=== PATIENT | male | born 1965 | race Caucasian/White ===

== ENCOUNTER 2025-03-23 08:04 | Outpatient (AMB) | payer OTHER, SELFPAY ==
--- NOTE | 2025-03-23 08:10 | A.OFFPC_ITS ---
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 Intake Note: patient here for new patient visit Online Activist Required: No Allergies No Known Allergies Allergy (Verified 03/23/25 08:22) Medication List - Last Reconciled 03/23/25 by Marquita Vargas CNP No Known Home Meds Tobacco use date assessed: 03/23/25 Dental Screening Dental Screen Date: 03/23/25 Did you have a dental visit in the last 12 months?: Yes Did you have a dental problem in the last 6 months where you did not have access to dental care?: No Was dental information given to patient?: Patient has dentist HPI HPI Comments History of Present Illness Details 59-year-old male presents to establish c are. Prior PCP? - Dr. Dixon, [facility] Last office visit/CPE/labs - About 1.5 year Acute issue(s) - Reports tenderness above his left knee . He describes the pain as constant, dull ache, intensifies with walking and going down stairs. His symptoms started in 12/2024 after he knelt on this knee while working on a tile floor. Since the injury, he has been avoiding kneeling and uses knee pads as needed. He denies fall, injury, or trauma. He took some alieve with some relief but stop taking it in a while. Past Medical History - Peptic ulcer, frequent headaches, ecze ma Surgical History - None Family History - Dad: Dementia - MGM: Alcohol abuse Social History - Nonsmoker. Does not vape. Drinks 4-5 beers monthly. Denies recreational drug use - Has been making healthy dietary choice s. Walks regularly. Generally sleep well Health maintenance - Last eye exam was several years ago. - Last dental visit was 5 months ago. He visits his dentist twice yearly - Last tetanus vaccine was more than 10 years ago; received Tdap vaccine today - He notes that he is up-to-date on the flu vaccine - He has never been vaccinated for shing les. - Last colonoscopy was 8-10 years ago at [facility], [place]: Normal w/o polyps. Record not available. 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 1. Little interest or pleasure in doing things: not at all 2. Feeling down, depressed, or hopeless: not at all 3. Trouble falling or staying asleep, or sleeping too much: not at all 4. Feeling tired or having little energy: not at all 5. Poor appetite or overeating: not at all 6. Feeling bad about yourself - or that you are a failure or have let yourself or your family down: not at all 7. Trouble concentrating on things, such as reading the newspaper or watching television: not at all 8. Moving or speaking so slowly that other people could have noticed. Or the opposite - being so fidgety or restless that you have been moving around a lot more than usual: not at all 9. Thoughts that you would be better off or of hurting yourself in some way: not at all Total score: 0 Depression Screening Interpretation: Negative Depression Screening Done: Yes 52118 - PHQ-9 Billing: Yes Source: Developed by Drs. Timmy Wayne, Cindy Travis, Josue Russ and colleagues, with an educational marjorie from [employer]. Thrive Questionnaire Date Thrive assessed: 03/23/25 I am a: Patient What is your living situation today?: I have a steady place to live Within the past 12 months, did the food you bought not last and you didn't have the money to get more?: Never true Within the past 12 months, did you worry whether your food would run out before you got money to buy more?: Never true Do you have trouble paying for medicines?: No Do you have trouble getting transportation to medical appointments?: No Do you have trouble paying your heating and electricity bill?: No Do you have trouble taking care of your child, family member or friend?: No Do you have trouble with day-to-day activities such as bathing, preparing meals, shopping, managing finances, etc.?: No Are you currently unemployed and looking for a job?: No Are you interested in more education?: No Please select the resources that you would like help with: None Currently or been in a relationship where the following occur: No concerns reported THRIVE Score: 0 AUDIT C Alcohol Use Questionnaire (AUDIT-C) 1. How often do you have a drink containing alcohol?: Monthly or less 2. How many drinks containing alcohol do you have on a typical day when you are drinking?: 1 or 2 3. How often do you have six or more drinks on one occasion?: Never Total Score: 1 Score Reviewed/Action Taken: Yes CARLO-7 AMB Questionnaire CARLO-7 Date CARLO - 7 assessed: 03/23/25 Feeling nervous, anxious, or on edge: 0 = Not at all Not being able to stop or control worryin = Not at all Worrying too much about different things: 0 = Not at all Trouble relaxin = Not at all Being so restless that it is hard to sit still: 0 = Not at all Becoming easily annoyed or irritable: 0 = Not at all Feeling afraid as if something awful might happen: 0 = Not at all Total CARLO-7 score (0-4 normal; 5-9 mild; 10-14 moderate; 15-21 severe): 0 Source: Developed by Drs. Timmy Wayne, Cindy Travis, Josue Russ and colleagues, with an educational marjorie from [employer]. CARLO-7 Assessment Billing CARLO-7 Assessment Tool: CARLO-7 Assessment 93007 Review of Systems Const Details: Denies chills, Denies fatigue, Denies fever(s), Denies headache(s) and Denies weakness HEENT Denies change in vision, Denies dizziness, Denies headache(s), Denies hearing loss, Denies nasal congestion, Denies sinus pain, Denies sinus pressure and Denies sore throat Card Denies chest pain, Denies lightheadedness, Denies dyspnea and Denies other (palpitations) Resp Denies cough, Denies dyspnea and Denies wheezing GI Denies abdominal pain, Denies melena, Denies hematochezia, Denies change in bowel habits, Denies dyspepsia and Denies nausea Denies hematuria and Denies dysuria Musc Reports pain above the left knee, Denies abnormal gait, Denies numbness and Denies tingling Skin/Breast Denies rash, Denies unusual bruising and Denies wounds Neuro Denies abnormal gait, Denies dizziness, Denies headache(s), Denies memory loss, Denies numbness, Denies Sensory deficit (Neuro), Denies tingling and Denies weakness Psych Denies anxiety, Denies depression and Denies memory loss Endo Denies cold intolerance, Denies fatigue, Denies heat intolerance, Denies polydipsia and Denies polyuria Familia/Lymph Denies easy bleeding and Denies easy bruising Aller/Immun Denies wheezing Physical exam (Primary Care) Vital Signs: Last Vital Signs Temp 97.6 F 03/23/25 08:17 Pulse 76 03/23/25 08:17 Resp 16 03/23/25 08:17 BP 135/70 03/23/25 08:17 Pulse Ox 97 03/23/25 08:17 Oxygen Delivery Method Room Air 03/23/25 08:17 BMI result Body Mass Index 27.3 Tobacco/Smoking Status: Tobacco use Status Tobacco use date assessed 03/23/25 03/23/25 08:16 Patient Tobacco Use Status Never used Tobacco 03/23/25 08:16 e-Cigarette/Vaping Use Never Used 03/23/25 08:16 PHQ-9: PHQ-9 Score PHQ-9: Total score 0 03/23/25 08:56 Depression Screening Interpretation: Negative Thrive Assessment: Date of Thrive Assessment Date Thrive assessed 03/23/25 03/23/25 08:16 Currently or been in a relationship where the following occur: No concerns reported Const Other: General: no acute distress, well developed, alert and awake Nutritional Appearance: well nourished Orientation/consciousness: patient oriented x3 HENMT Head: Yes normocephalic and Yes atraumatic Ears: hearing grossly normal bilaterally and TM's normal bilaterally General nose exam: Normal external nose present and Normal nares present Mouth: Normal oral and palatal mucosa present and moist mucous membranes Teeth and gingiva: dentition normal Throat: Yes oropharynx normal Eyes Pupils: Equal, round and reactive pupils present and Pupil accommodation reflex normal EOM: EOMs intact bilaterally Neck Neck: Yes normal visual inspection, Yes no lymphadenopathy and Yes trachea mid line Thyroid: Thyroid normal Carotids: no bruits Lymphatic: no lymphadenopathy noted Chest Chest palpation & inspection: normal inspection of the chest Resp Effort & Inspection: normal respiratory effort Auscultation: clear to auscultation bilaterally Cardio Rate: regular rate Rhythm: regular rhythm Heart sounds: S1 normal heart sound present, S2 normal heart sound present, no gallops, no murmurs and no rubs Bruits: no abdominal aortic bruits and no carotid bruits GI Palpation (GI): No Abdominal aortic bruit present, Soft to palpation, nontender, No hepatosplenomegaly present and No Rebound tenderness present Auscultation: normal bowel sounds General: Yes no CVA tenderness Back/Spine/Pelvis Back: no CVA tenderness Cervical Spine: cervical ROM normal and No Cervical spine tenderness Thoracic/Lumbar Spine: thoraco-lumbar ROM normal, No pain with thoraco-lumbar ROM, No thoracic spinal tenderness and No lumbar spinal tenderness Skin General: warm and dry. Normal skin color. Normal skin turgor Lesions: no lesions Rashes: no rashes Trauma: no lacerations or abrasions Wounds: no wounds Nails: normal Neuro General: patient oriented x3, gait normal and CN's II-XI intact bilaterally Cranial nerves: Yes Equal, round and reactive pupils present Cognition (Neuro): normal cognition Gait exam (Neuro): Normal gait present Motor exam (neuro): 5/5 motor strength present throughout Sensory Exam: No Sensory deficit (Neuro) Deep tendon reflexes (DTR's): Right patellar reflex intensity grade: 2+ and Left patellar reflex intensity grade: 2+ Extrem General: Yes normal to inspection, No edema and No calf tenderness. Point te nderness to palpation above the left knee, no erythema, edema, or overt injury or trauma Psych Appearance: grossly normal Affect: normal affect Attitude: cooperative Thought process: Normal thought process present Immunizations Boostrix Tdap 2.5 Lf unit-8 mcg-5 Lf/0.5 mL intramuscular syringe Performing Provider: Marquita Vargas CNP Performing Location: [facility] Administered by: Maycol Katz RN on 03/23/25 08:56 Dose Route Admin Location Dispensed Lot Number Expiration Date [facility] Retail Supervisor 0.5 mL IM Left Deltoid 0.5 mL [id number] 04/24/27 [id number] [employer] VIS Given Date VIS Provided VIS Publication Date 03/23/25 Single Vaccine 21 Eligibility Eligibility Date Funding Source Not [facility] Eligible 03/23/25 Private Coding Level of Care Code New Pt Level 3 (74472) New Pt Prev Care 40-64y(78375) Diagnoses Normal physical examination, routine Z00.00 Pain of left lower extremity M79.605 Eye exam, routine Z01.00 Vaccine counseling Z71.85 Colon cancer screening Z12.11 Laboratory tests ordered as part of a complete physical exam (CPE) Z00.00 Additional Codes CARLO-7 Assessment Billing - CARLO-7 Assessment Tool: CARLO-7 Assessment 59885 ([id number]) PHQ-9 - 27315 - PHQ-9 Billing: Yes ([id number]) Assessment & Plan Assessment & Plan (1) Normal physical examination, routine: Code(s): Z00.00 - Encounter for general adult medical examination without abnormal findings Category: Medical Plan: No significant functional limitations noted. Healthy diet and routine exercise encouraged. Perform level can follow-up for telehealth visit in 2-3 weeks. Return sooner with symptoms or concerns. Verbalized understanding and agreed with treatment plan. (2) Pain of left lower extremity: Code(s): M79.605 - Pain in left leg Category: Medical Plan: Point tenderness to palpation above the left knee, no erythema, edema, or overt injury or trauma. Quadricep tendinitis is likely. Advised to avoid kneeling down until healed. Naproxen 500 mg twice daily as needed ordered; advised to take as prescribed and with food. Instructed on the risks, benefits, potential adverse reactions of the medication. Warm/cool compresses encouraged. Follow-up with worsening or new symptoms. Verbalized understanding and agreed with the plan. (3) Eye exam, routine: Code(s): Z01.00 - Encounter for examination of eyes and vision without abnormal findings Category: Medical Plan: Last eye exam was several years ago. Referred to Ophthalmology for routine eye exam. (4) Vaccine counseling: Code(s): Z71.85 - Encounter for immunization safety counseling Category: Medical Plan: He has never been vaccinated for shingles. Instructed on importance of vaccination and encouraged to get the vaccine from the local pharmacy. Verbalized understanding and agreed with the plan. (5) Colon cancer screening: Code(s): Z12.11 - Encounter for screening for malignant neoplasm of colon Category: Medical Plan: Last colonoscopy was 8-10 years ago at [facility], [place]: Normal w/o polyps. Record not available. Will request his colonoscopy record an update as needed. (6) Laboratory tests ordered as part of a complete physical exam (CPE): Code(s): Z00.00 - Encounter for general adult medical examination without abnormal findings Category: Medical Plan: Fasting labs ordered as part of a complete physical exam. Advised to fast for at least 10 hours before getting labs drawn. May drink water Verbalized understanding and agreed with treatment plan. Orders: Orders Complete Blood Count Auto Diff Today Z00.00 - Encounter for general adult medical examination without abnormal findings Lipid Panel Today Z00.00 - Encounter for general adult medical examination without abnormal findings Microalbumin, Random (w Creat) Today Z00.00 - Encounter for general adult medical examination without abnormal findings TDaP Immunization Today Z23 - Encounter for immunization Comprehensive [place]. Panel Fast Today Z00.00 - Encounter for general adult medical examination without abnormal findings TSH reflex Free T4 Today Z00.00 - Encounter for general adult medical examination without abnormal findings UA CC w/rflx Micro + Cult Today Z00.00 - Encounter for general adult medical examination without abnormal findings Vitamin D 25-OH Total Today Z00.00 - Encounter for general adult medical examination without abnormal findings PSA, Ultra Sensitive Today Z00.00 - Encounter for general adult medical examination without abnormal findings Referrals Ophthalmology Referral Z01.00 - Encounter for examination of eyes and vision without abnormal findings Medications: New naproxen 500 mg PO BID PRN 60 tabs 1RF pain
[2025-03-23 08:17] VITALS: BP 135/70; PULSE 76; RESP 16; TEMP 36.4; O2SAT 97; BMI 27.3
== END 2025-03-23 08:56 | disposition home or self-care (01) ==
LOC: HO.HMCFM 08:05
PROVIDERS: Visit Provider Nurse Practitioner Family
DX: Z00.00 Encounter for general adult medical examination without abnormal findings (principal); M79.605 Pain in left leg; Z71.85 Encounter for immunization safety counseling; Z12.11 Encounter for screening for malignant neoplasm of colon; Z23 Encounter for immunization

== ENCOUNTER → 2025-03-23 08:04 | Outpatient (BNVA) | payer OTHER, SELFPAY | PROVIDERS: Visit Provider Nurse Practitioner Family | DX: Z00.00 Encounter for general adult medical examination without abnormal findings (principal); Z23 Encounter for immunization; M79.605 Pain in left leg; Z71.85 Encounter for immunization safety counseling | CPT/HCPCS: 90471; 90715; 96127; 99202; 99386 ==

== ENCOUNTER 2025-03-23 09:14 | Outpatient (REF) | payer OTHER, SELFPAY ==
[2025-03-23 11:22] LABS: MANUAL DIFF FLAG NO
[2025-03-23 11:30] LABS: Basophils Percent Auto 0.7 % (0-2); Eosinophils Absolute Auto 0.1 X10*3/uL (0.0-0.4); Eosinophils Percent Auto 1.4 % (0-4); Hematocrit 44.5 % (42.0-52.0); Hemoglobin 14.9 g/dl (14.0-18.0); Imm Gran Abs Auto 0.01 X10*3/uL (0.00-0.03); Imm Gran Pct Auto 0.2 % (0.0-0.4); Lymphocytes Absolute Auto 1.9 X10*3/uL (1.2-4.9); Mean Corpuscular HGB Conc 33.5 g/dl (31.0-36.0); Mean Corpuscular Hemoglobin 30.5 pg (27.0-33.0); Mean Corpuscular Volume 91.2 fL (80.0-98.0); Mean Platelet Volume 10.8 fL (9.4-12.4); Monocytes Absolute Auto 0.5 X10*3/uL (0.1-1.2); Monocytes Percent Auto 8.2 % (2-11); Neutrophils Absolute Auto 3.2 x10*3/uL (2.0-8.3); Neutrophils Percent Auto 56.5 % (45-73); Platelet Count 216 X10*3/uL (160-400); Red Blood Count 4.88 X10*6/uL (4.60-5.80); Red Cell Distribution Width 12.7 % (11.0-16.0); White Blood Count 5.6 X10*3/uL (4.8-10.8)
[2025-03-23 12:25] LABS: Anion Gap 12 (12-20); Vitamin D 25-OH Total 51.2 ng/mL (>30)
[2025-03-23 12:29] LABS: Alanine Aminotransferase 61 U/L (0-40); Albumin Level 4.5 g/dL (3.5-5.0); Aspartate Amino Transferase 40 U/L (5-37); Bilirubin Total 0.5 mg/dL (0.0-1.0); Blood Urea Nitrogen 19 mg/dL (9-16); Calcium 9.4 mg/dL (8.4-10.2); Carbon Dioxide 26 mmol/L (22-29); Chloride 107 mmol/L (96-108); Cholesterol 248 mg/dL (<200); Estimated Glomerular Filt Rate > 60; Glucose Fasting 105 mg/dL (60-99); HDL Cholesterol 48 mg/dL (>40); LDL Cholesterol Calculated 166 mg/dL (<100); Potassium 4.4 mmol/L (3.3-5.1); Sodium 141 mmol/L (135-145); Total Protein 7.1 g/dL (6.5-8.0); Triglycerides 173 mg/dL (<150)
[2025-03-23 12:41] LABS: Alkaline Phosphatase 55 U/L (39-117)
== END 2025-03-23 09:15 | disposition home or self-care (01) ==
LOC: HO.WFDLDS 09:14
PROVIDERS: Visit Provider Nurse Practitioner Family
DX: Z00.00 Encounter for general adult medical examination without abnormal findings (principal)
CPT/HCPCS: 36415; 80053; 80061; 82306; 84153; 84443; 85025

== ENCOUNTER 2025-04-12 15:26 | Outpatient (AMB) | payer OTHER, SELFPAY ==
--- NOTE | 2025-04-12 15:23 | A.OFFPC_ITS ---
Intake Visit Reasons: Telehealth 2-3 wks labs review Intake Note: patient here for 2-3 wks [facility] for lab review Door Puller Required: No Allergies No Known Allergies Allergy (Verified 04/12/25 15:23) Tobacco use date assessed: 04/12/25 Dental Screening Dental Screen Date: 04/12/25 Did you have a dental visit in the last 12 months?: Yes Did you have a dental problem in the last 6 months where you did not have access to dental care?: No Was dental information given to patient?: Patient has dentist HPI HPI Comments History of Present Illness Details 59-year-old [facility] of recent lab results. He notes that he generally makes healthy dietary choices. His knee pain is responding well to naproxen; therefore, he plans to resume regular exercise. He did not get urinalysis and urine microalbumin lab work done. He offers no complaints and denies acute symptoms at this time. His father has history of hyperlipidemia. 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 Current occupational exposures/hazards: Yes Cognitive needs: No Hearing needs: No Vision needs: Yes Questionnaire Thrive Questionnaire Date Thrive assessed: 03/23/25 I am a: Patient What is your living situation today?: I have a steady place to live Within the past 12 months, did the food you bought not last and you didn't have the money to get more?: Never true Within the past 12 months, did you worry whether your food would run out before you got money to buy more?: Never true Do you have trouble paying for medicines?: No Do you have trouble getting transportation to medical appointments?: No Do you have trouble paying your heating and electricity bill?: No Do you have trouble taking care of your child, family member or friend?: No Do you have trouble with day-to-day activities such as bathing, preparing meals, shopping, managing finances, etc.?: No Are you currently unemployed and looking for a job?: No Are you interested in more education?: No Please select the resources that you would like help with: None Currently or been in a relationship where the following occur: No concerns reported THRIVE Score: 0 CARLO-7 AMB Questionnaire CARLO-7 Date CARLO - 7 assessed: 03/23/25 Source: Developed by Drs. Timmy Wayne, Cindy Travis, Josue Russ and colleagues, with an educational marjorie from [employer]. Review of Systems Const Details: Denies chills, Denies fatigue, Denies fever(s), Denies headache(s) and Denies weakness Cardiac Denies chest pain, Denies claudication, Denies leg edema, Denies lightheadedness, Denies palpitations, Denies dyspnea, Denies dyspnea on exertion, Denies orthopnea and Denies other (Loss of consciousness) Resp Denies cough, Denies excessive phlegm production, Denies dyspnea, Denies dyspnea on exertion, Denies snoring and Denies wheezing Physical exam (Primary Care) Tobacco/Smoking Status: Tobacco use Status Tobacco use date assessed 04/12/25 04/12/25 15:25 Patient Tobacco Use Status Never used Tobacco 04/12/25 15:25 e-Cigarette/Vaping Use Never Used 04/12/25 15:25 Thrive Assessment: Date of Thrive Assessment Date Thrive assessed 03/23/25 04/12/25 15:25 Currently or been in a relationship where the following occur: No concerns reported Const Other: Patient is alert oriented x3 Telehealth Telehealth Telehealth Platform: Telephone Location of provider rendering services: practice address Location of patient: address on file Patient Identification confirmed using: Name, : Yes Telehealth method: voice only Patient verbally consented to treatment: Yes Patient verbally consented to billing insurance company: Yes Patient informed of any privacy concerns related to visit: Yes Coding Level of Care Code Tele Est Pt Level 3 (29073) Diagnoses Elevated fasting glucose R73.01 Hyperlipidemia E78.5 Transaminitis R74.01 Time Spent (min) 15 Assessment & Plan Assessment & Plan (1) Elevated fasting glucose: Code(s): R73.01 - Impaired fasting glucose Category: Medical Plan: Recent fasting glucose is slightly elevated, 105. Healthy diet and routine exercise encouraged. Will recheck fasting glucose and make changes as needed. Verbalized understanding and agreed with the plan. (2) Hyperlipidemia: Code(s): E78.5 - Hyperlipidemia, unspecified Category: Medical Plan: Recent triglycerides, total cholesterol, and LDL levels are elevated, 173, 248, and 166 respectively. Likely due to poor diet. Genetics may also play a role. Declines medication treatment at this time and notes he will improve his lifestyle. Advised to limit foods high in saturated fat and avoid foods high in trans fat. Routine exercise encouraged. Fast for 10-12 hours, may drink water, and perform lipid panel blood work 2-3 days before next visit. Follow-up for a telehealth visit in 2 months. Return sooner with symptoms or concerns. Verbalized understanding and agreed with the treatment plan. (3) Transaminitis: Code(s): R74.01 - Elevation of levels of liver transaminase levels Category: Medical Plan: Recent AST and ALT levels a slightly elevated, 40 and 61 respectively. Likely due to poor diet. Healthy diet, including low-fat encouraged. Encouraged to exercise routinely. Will recheck fasting liver panel in 2 months. Verbalized understanding and agreed with treatment plan. Plan Encouraged to perform urinalysis and urine microalbumin blood work done before next visit. Verbalized understanding and agreed with the plan. Orders: Orders Lipid Panel 2 Months E78.5 - Hyperlipidemia, unspecified Liver Panel 2 Months R74.01 - Elevation of levels of liver transaminase levels Glucose Fasting 2 Months R73.01 - Impaired fasting glucose
== END 2025-04-12 15:56 | disposition home or self-care (01) ==
LOC: HO.HMCFM 15:26
PROVIDERS: PCP Nurse Practitioner Family; Visit Provider Nurse Practitioner Family
DX: R73.01 Impaired fasting glucose (principal); E78.5 Hyperlipidemia, unspecified; R74.01 Elevation of levels of liver transaminase levels

== ENCOUNTER → 2025-04-12 15:26 | Outpatient (BNVA) | payer OTHER, SELFPAY | PROVIDERS: PCP Nurse Practitioner Family; Visit Provider Nurse Practitioner Family | DX: Z13.89 Encounter for screening for other disorder (principal) ==